=== PATIENT | female | born 1975 | race Caucasian/White ===

== ENCOUNTER 2016-09-04 20:20 | Emergency (ER) | payer BC ==
[2016-09-04] MEDS ORDERED: LORAZEPAM 2 MG/ML SOL IM PRN (21:04)
[2016-09-04 21:34] LABS: BASOPHILS % (AUTO) 1 % (0-3); EOSINOPHILS % (AUTO) 1 % (0-9); HEMATOCRIT 35 % (35-47); MEAN CORPUSCULAR HGB CONC 34.1 gm/dl (32.0-36.0); MEAN CORPUSCULAR VOLUME 83 fL (81-99); NEUTROPHILS % (AUTO) 48.1 % (37-80)
[2016-09-04 21:51] LABS: ALBUMIN 3.8 gm/dl (3.4-5.0); ALT 18 IU/L (14-63); CALCIUM 8.5 mg/dl (8.5-10.1); GLOM FILT RATE 89 mL/min (>60); SODIUM 139 mMol/L (136-145)
[2016-09-04 22:05] VITALS: RESP 16; TEMP 98.8
[2016-09-04 22:26] VITALS: BP 106/65; PULSE 53; O2SAT 98
== END 2016-09-04 22:28 | disposition home or self-care (01) ==
LOC: ED 20:20
DX: R07.89 Other chest pain (principal)
CPT/HCPCS: 36415; 71010; 80053; 84484; 84703; 85025; 93005; 99282; 99283

== ENCOUNTER 2019-03-25 17:56 | Emergency (ER) | payer OTHER ==
[2019-03-25 19:50] VITALS: RESP 18; TEMP 97.1; O2SAT 100
[2019-03-25] MEDS ORDERED: CEPHALEXIN 250 MG/5 ML BOTTLE ONE (20:31)
[2019-03-25] MEDS ORDERED: CEPHALEXIN 250 MG/5 ML BOTTLE PO ONE (20:32)
[2019-03-25 21:00] VITALS: BP 142/93; PULSE 85
== END 2019-03-25 20:48 | disposition home or self-care (01) | DRG 603 ==
LOC: ED 17:56
DX: L02.32 Furuncle of buttock (principal)
CPT/HCPCS: 99282; 99283; A9270-GY